=== PATIENT | male | born 1970 | race Caucasian/White ===

== ENCOUNTER 2020-07-05 13:01 | Inpatient (IN) | payer OTHER, SELFPAY ==
[2020-07-05] VITALS (14 sets, daily range): BP systolic 126–177; BP diastolic 70–86; PULSE 95–110; RESP 12–28; TEMP 36.3–36.7; O2SAT 91–100; BMI 32.4
--- NOTE | ~2020-07-05 | CT_ITS ---
EXAMINATION: CTA chest PE protocol DATE: 07/06/2020 15:50 INDICATION: COVID positive. Cough, fever and shortness of breath. Elevated d-dimer. TECHNIQUE: Computed tomography (CT) pulmonary angiogram of the chest was performed with 100 mL Omnipa que-350 intravenous contrast. Additional 3D reconstructions utilizing coronal maximum intensity proje ction (MIP) were performed. Automated exposure control and iterative reconstruction technique were em ployed. The dose-length product was 637.12 mGy-cm. COMPARISON: None FINDINGS: Good contrast opacification of the pulmonary arteries. There is moderate streak artifact from dense c ontrast in the superior vena cava and right atrium. There is also moderate scattered respiratory angel on artifact. Together this significantly decreases sensitivity in some of the subsegmental pulmonary arteries and mildly decreases sensitivity in the segmental pulmonary arteries. No definite pulmonary embolism. Peripheral, posterior and lower lung predominant patchy consolidation and groundglass opaci ties in both lungs consistent with provided pneumonia. No pleural effusion or pneumothorax. Heart siz e is normal. No pericardial effusion. Thoracic aorta is normal in caliber with no dissection. No path ologically enlarged thoracic lymphadenopathy. Minimal bilateral gynecomastia. Diffuse hepatic steatos is. Likely physiologic mild anterior wedging at T12. Mild thoracic spondylosis with multilevel modera te facet osteoarthritis. IMPRESSION: 1. No pulmonary embolism with sensitivity mildly decreased in the segmental and more significantly de creased in the subsegmental pulmonary arteries due to motion and streak artifact. 2. Peripheral, posterior lower lung predominant patchy airspace disease with appearance favoring COVI D pneumonia. Reviewed, dictated and finalized at location A. DESIGNER IMPRESSION: 1. No pulmonary embolism with sensitivity mildly decreased in the segmental and more significantly decreased in the subsegmental pulmonary arteries due to mot ion and streak artifact. 2. Peripheral, posterior lower lung predominant patchy airspace disease with ap pearance favoring COVID pneumonia.
--- NOTE | ~2020-07-05 | XR_ITS ---
EXAMINATION: XR chest 1V portable DATE: 07/05/2020 13:55 INDICATION: Fever, cough, shortness of breath. COVID-19 pneumonia. TECHNIQUE: A single frontal view of the chest was obtained. COMPARISON: None. FINDINGS: There are mild airspace opacities in the right lower lung zone and left mid and lower lung zones. No pleural effusion or pneumothorax. The heart size is normal. IMPRESSION: 1. Mild airspace opacities in right lower lung zone and left mid and lower lung zones, consistent wit h COVID-19 pneumonia. Reviewed, dictated and finalized at location A. AGE MACHINE OPERATOR IMPRESSION: 1. Mild airspace opacities in right lower lung zone and left mid and lower lung zones, consistent with COVID-19 pneumonia.
--- NOTE | 2020-07-05 13:21 | ECG_ITS ---
Measurements Intervals [place] Rate: 107 P: 17 SD: 164 QRS: 11 QRSD: 101 T: 23 QT: 323 QTc: 432 Interpretive Statements SINUS TACHYCARDIA INCOMPLETE RIGHT BUNDLE BRANCH BLOCK DELAYED PRECORDIAL R/S TRANSITION BORDERLINE T WAVE ABNORMALITY- INFERIOR LEADS BASELINE ARTIFACT- I, III, AVL, V2 ABNORMAL ECG Electronically Signed On 07-05-2020 15:36:02 [employer] by Darrian Vicente D.O.
[2020-07-05 13:37] LABS: Basophils Percent Auto 0.3 % (0.2-1.2); Hematocrit 48.3 % (42.0-52.0); Hemoglobin 16.2 g/dL (14.0-18.0); Immature Granulocyte Absolute 0.03 K/mm3 (0.00-0.031); Immature Granulocyte Percent A 0.4 % (0-0.5); Lymphocytes Absolute Auto 1.03 K/mm3 (0.9-3.2); Mean Corpuscular HGB Conc 33.5 g/dl (32-36); Mean Corpuscular Hemoglobin 30.3 pg (26-34); Mean Corpuscular Volume 90.3 fl (80-100); Mean Platelet Volume 9.9 fl (7.4-10.4); Monocytes Absolute Auto 0.3 K/mm3 (0.1-0.6); Monocytes Percent Auto 4.5 % (2.6-8.5); Neutrophils Absolute Auto 5.5 K/mm3 (1.3-6.7); Neutrophils Percent Auto 79.8 % (45.5-73.1); Platelet Count Result 220 k/mm3 (150-375); Red Blood Count 5.35 M/mm3 (4.6-6.20); Red Cell Distribution Width 11.6 % (11.5-14.5); White Blood Count 6.9 K/mm3 (4.5-10.0)
[2020-07-05 13:49] LABS: Anion Gap 6 mmol/L (8-16); Blood Urea Nitrogen 10 mg/dL (9-20); Calcium 8.3 mg/dL (8.4-10.2); Carbon Dioxide 30 mmol/L (22-30); Chloride 101 mmol/L (98-107); Estimated CRCL calculation 110 ml/min; Estimated Glomerular Filt Rate > 60; Glucose 110 mg/dL (75-110); Sodium 137 mmol/L (137-145)
[2020-07-05 14:01] LABS: Alveolar/Arterial O2 Gradient 46.8 mmHg; Base Excess ABG 1.7 mEq/l (+/-2.0); Fractional Inspired Oxygen 21 %; HCO3 ABG 25.5 mEq/l (22.0-26.0); Oxygen Content ABG 20.1 %vol (16.0-22.0); Oxygen Saturation ABG 91.3 % (95.0-100.0); Oxyhemoglobin 89.9 % THb (90.0-100.0); PCO2 ABG 37.7 mmHg (35.0-45.0); PO2 ABG 57.8 mmHg (80.0-100.0); PO2 FiO2 Ratio Arterial Blood 2.75 %; Total Hemoglobin 15.9 g/dL (12.0-18.0); pH ABG 7.448 (7.350-7.450)
[2020-07-05 14:02] LABS: Device ROOM AIR; Modified Allen's Test Pass; Site Drawn RIGHT RADIAL
--- NOTE | 2020-07-05 15:14 | ED.SOB ---
HPI - SOB/Dyspnea General Chief Complaint: Shortness of Breath/Dyspnea Stated Complaint: COVID+, fever x 10 days, SOB Time Seen by Provider: 07/05/20 13:27 Source: patient Limitations: no limitations History of Present Illness HPI Narrative: 49 years old white male referred to the emergency room by urgent care because of shortness of breath. Patient tested positive for COVID-19 10 days ago. Was doing okay. In the last few days been having trouble breathing on exertion. Patient denies any headache, chest pain or abdominal pain. Related Data Home Medications Medication Instructions Recorded Confirmed No Home Medications 07/05/20 07/05/20 Allergies Allergy/AdvReac Type Severity Reaction Status Date / Time No Known Allergies Allergy Verified 07/05/20 13:17 Review of Systems Review of Systems: Narrative: CONSTITUTIONAL: Denies fever, chills, or sweats. EYES: Denies visual changes, redness, or discharge. ENT: Denies rhinorrhea, congestion, sore throat, or otalgia. CARDIOVASCULAR: Denies chest pain, palpitations, or edema. RESPIRATORY: Denies cough or dyspnea. GASTROINTESTINAL: Denies abdominal pain, nausea, vomiting, or diarrhea. GENITOURINARY: Denies dysuria or hematuria. SKIN: Denies rash or itching. MUSCULOSKELETAL: Denies back pain, joint pain, or myalgia. NEUROLOGIC: Denies headache, numbness, or weakness. PSYCHIATRIC: Denies anxiety or depression. [facility] Family History Family History Father Family history of coronary artery disease Social History Social History Smoking status: Never smoker Alcohol intake: current Gender identity (if verbalized by the patient): Male Exam Narrative: Exam Narrative: General appearance: Well-developed, well-nourished Skin: Normal color Head: Normocephalic, nontraumatic Eyes: Clear conjunctiva ENT: Oropharynx normal, ears normal, nose normal Neck: Supple, nontender Chest and respiratory: Airway patent, no respiratory distress, no accessory muscle use Heart: Regular rate/rhythm Abdomen: Soft, nontender, no organomegaly, quiet bowel sounds Vascular: Normal peripheral pulses, normal capillary refill. 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 Presents with shortness of breath. Labs, blood gas on room air, chest x-ray ordered. Further plan to follow Differential Diagnosis Differential diagnosis: Likely congestive heart failure, community acquired pneumonia, pulmonary embolism and other (Covid pneumonia) Lab Data Result diagrams: 07/05/20 13:23 07/05/20 13:23 Labs: Lab Results 07/05/20 07/05/20 07/05/20 Range/Units 13:23 13:23 13:23 WBC 6.9 (4.5-10.0) K/mm3 RBC 5.35 (4.6-6.20) M/mm3 Hgb 16.2 (14.0-18.0) g/dL Hct 48.3 (42.0-52.0) % MCV 90.3 (80-100) fl MCH 30.3 (26-34) pg MCHC 33.5 (32-36) g/dl RDW 11.6 (11.5-14.5) % Plt Count 220 (150-375)
--- NOTE | 2020-07-05 17:21 | ADMGEN ---
This patient, James Black, was admitted to IMU Room 213-01. Patient/family oriented to hospital policies and general routines including ID bracelet, bed and alarms, visiting hours, pain management, procedures, bathroom and other care routines, personal items, smoking policy, room service/diet, and visiting hours. Information on how to activate the Rapid Response Team has been discussed. Patient/Family are encouraged to report perceived risks to care and to ask questions if they do not understand what they are told or what they should do.
--- NOTE | 2020-07-05 18:33 | PM.IMHP ---
H&P: HPI History of Present Illness Date/Time: 07/05/20 18:33 Chief Complaint: COVID pneumonia Narrative: James Black is a 49 year old male who came to the emergency room because he was short of breath. The patient is still running high fevers. He stated that he has been checking his pulse ox at home and that he had been running 89-90%. The patient still has a cough and was concerned about his breathing so therefore he came to the emergency room. His a tested positive for COVID as well and so did his 2 children that are at home. The patient stated he took Tylenol and cough medicine at home. The patient tells me that his symptoms started 10 days ago. He was doing okay until last night and then he got very short of breath. The patient stated he cannot walk up stairs but is okay to go to the bathroom back. The patient stated that he has not been able to work for the last 10 days. I checked his temperature in the room it was 101.1. In the ER notes the patient has smoked 3 admitted to medical-surgical floor however the orders were put in for IMU. I believe that the patient could be moved to a regular medical surgical floor with telemetry. The patient is being admitted to inpatient for COVID pneumonia with hypoxia 92% and went up to 94 at 1 time. Oxygen was ordered for the patient but he was on room air when I saw him and he is talking in full sentences. The patient is flushed. He said he feels like he has a fog in his brain. He just feels very ill. No nausea or vomiting. He has a headache and body aches. The patient was given Tylenol in the emergency room. Patient is being admitted to inpatient status on the date of service of 07/05/2020. Review of Systems Review of Systems: All systems reviewed & are unremarkable except as noted in HPI and below Constitutional: Constitutional: Reports as per HPI and Reports no additional constitutional complaints Eyes: Eyes: Reports as per HPI and Reports no additional eye complaints ENT: Reports system reviewed and no additional complaints, except as documented and Reports Normal hearing present Cardiovascular: Cardiovascular: Reports no additional cardiovascular complaints Respiratory: Respiratory: Reports no additional respiratory complaints and Reports no additional respiratory complaints Gastrointestinal: Gastrointestinal: Reports as per HPI and Reports no additional gastrointestinal complaints Musculoskeletal: Musculoskeletal: Reports no additional musculoskeletal complaints Integumentary/Breasts: Skin/Breast: Reports system reviewed and no additional complaints, except as docu and Reports as per HPI Neurologic: Reports system reviewed and no additional complaints, except as documented, Reports as per HPI and Reports Normal hearing present Psychiatric: Psychiatric: Reports no additional psychiatric complaints and Reports as per HPI Endocrine: Endocrine: Reports no additional endocrine complaints Hematologic/Lymphatic: Hematologic/Lymphatic: Reports no additional hematologic/lymphatic complaints Allergic/Immunologic: Allergic/Immunologic: Reports no additional allergic/immunologic complaints PMFSH Surgical History Surgical History (Updated 07/05/20 @ 18:39 by Cheyanne Gupta NP) History of ankle surgery ORIF of left ankle Family History Family History Father Family history of coronary artery disease Social History Social History (Updated 07/05/20 @ 18:41 by Cheyanne Gupta NP) Social History: The patient works for a [employer] firm. He has 3 children. 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 He desires to be a full code. His lifelong nonsmoker. He does not use any alcohol or drugs. Smoking status: Never smoker Alcohol intake: current Drinks per week: 1 Substance use: never Gender identity (if verbalized by the patient): Male Spiritual care concerns: No
[2020-07-05 19:10] LABS: Alanine Aminotransferase 63 U/L (4-50)
[2020-07-05] MEDS: REMDESIVIR 200 MG/NS 250 ML 200 MG/250 ML BAG 250 MG IVPB (20:41)
[2020-07-05] MEDS: ACETAMINOPHEN 325 MG TABLET 650 MG PO (20:46)
[2020-07-05] MEDS: guaiFENesin/DEXTROMETHORPHAN 10 ML UDC PO (20:57)
[2020-07-06] VITALS (13 sets, daily range): BP systolic 115–133; BP diastolic 67–74; PULSE 75–97; RESP 12–20; TEMP 36.4–37.5; O2SAT 92–99
[2020-07-06] MEDS: ACETAMINOPHEN 325 MG TABLET 650 MG PO ×3 (00:41→20:20)
[2020-07-06 05:42] LABS: Basophils Percent Auto 0.4 % (0.2-1.2); Hematocrit 41.4 % (42.0-52.0); Hemoglobin 13.8 g/dL (14.0-18.0); Immature Granulocyte Absolute 0.05 K/mm3 (0.00-0.031); Immature Granulocyte Percent A 0.7 % (0-0.5); Lymphocytes Absolute Auto 1.27 K/mm3 (0.9-3.2); Lymphocytes Percent Auto 16.9 % (18.3-44.2); Mean Corpuscular HGB Conc 33.3 g/dl (32-36); Mean Corpuscular Hemoglobin 30.4 pg (26-34); Mean Corpuscular Volume 91.2 fl (80-100); Mean Platelet Volume 9.8 fl (7.4-10.4); Monocytes Absolute Auto 0.3 K/mm3 (0.1-0.6); Monocytes Percent Auto 4.5 % (2.6-8.5); Neutrophils Absolute Auto 5.8 K/mm3 (1.3-6.7); Neutrophils Percent Auto 77.5 % (45.5-73.1); Platelet Count Result 239 k/mm3 (150-375); Red Blood Count 4.54 M/mm3 (4.6-6.20); Red Cell Distribution Width 11.6 % (11.5-14.5); White Blood Count 7.5 K/mm3 (4.5-10.0)
[2020-07-06 06:04] LABS: Alanine Aminotransferase 54 U/L (4-50); Albumin Level 3.8 g/dL (3.5-5.1); Alkaline Phosphatase 53 U/L (38-126); Anion Gap 5 mmol/L (8-16); Aspartate Amino Transferase 73 U/L (17-59); Bilirubin,Total 0.7 mg/dL (0.2-1.3); Blood Urea Nitrogen 12 mg/dL (9-20); Calcium 8.4 mg/dL (8.4-10.2); Carbon Dioxide 30 mmol/L (22-30); Chloride 100 mmol/L (98-107); Estimated CRCL calculation 121 ml/min; Estimated Glomerular Filt Rate > 60; Glucose 103 mg/dL (75-110); Lactate Dehydrogenase 1252 U/L (313-618); Potassium 4.2 mmol/L (3.4-5.0); Sodium 135 mmol/L (137-145)
[2020-07-06 06:18] LABS: CRP 16.1 mg/dL (<1.0)
[2020-07-06 09:13] LABS: Ferritin > 2000.00 ng/mL (17.9-464)
[2020-07-06] MEDS: DEXAMETHASONE SOD PHOS INJ 4 MG/ML VIAL 6 MG IV PUSH (09:25)
[2020-07-06] MEDS: ENOXAPARIN 40 MG/0.4 ML SYRINGE SUB-Q (09:31)
--- NOTE | 2020-07-06 13:43 | PM.IMPN ---
Progress Note: A&P Assessment and Plan (1) 2019 novel coronavirus–infected pneumonia (NCIP)#8211;infected pneumonia (NCIP): Code(s): U07.1 - COVID-19; J12.82 - Pneumonia due to coronavirus disease 2018 Status: Acute Assessment and Plan: Chest x-ray shows multifocal pneumonia Patient has significantly elevated ferritin and LDH Started on dexamethasone day 2 Started on remdisever day 2 ID was consulted may benefit from convalescent plasma (2) Acute hypoxemic respiratory failure: Code(s): J96.01 - Acute respiratory failure with hypoxia Status: Acute Assessment and Plan: Secondary to COVID-19 pneumonia on oxygen 1 L (3) Abnormal EKG: Code(s): R94.31 - Abnormal electrocardiogram [ECG] [EKG] Status: Acute Assessment and Plan: Patient denies chest pain Will get serial troponin May need echo before discharge if troponin elevated or patient developed episodes of chest pain otherwise will get echo as outpatient once patient COVID-19 infection resolved Patient had partial right bundle branch block ST segment changes nonspecific Subjective Date/time seen: 07/06/20 13:43 Interval history: Patient seen and examined Patient feels weak complain of shortness of breath on oxygen Patient currently on dexamethasone and remdisever Patient denies fever headache chest pain I am seeing the patient for shortness of breath Exam Narrative: Exam Narrative: Alert Chest bilateral crackles Abdomen nontender nondistended CVS S1 + S2 Lower extremity edema Objective Data Vital Signs Vital Signs: Vital Signs - 24 hr 07/05/20 14:46 07/05/20 15:41 07/05/20 16:00 Temperature 97.9 F Pulse Rate 102 H 105 H 96 Respiratory Rate 22 H 20 12 Blood Pressure 130/84 128/82 140/73 Pulse Oximetry 92 91 94 07/05/20 16:05 07/05/20 16:30 07/05/20 18:00 Temperature Pulse Rate 105 H 104 H 108 H Respiratory Rate 24 H Blood Pressure 126/76 Pulse Oximetry 92 94 07/05/20 19:31 07/05/20 20:00 07/05/20 21:53 Temperature 97.3 F L Pulse Rate 105 H 110 H Respiratory Rate 12 Blood Pressure 177/70 H Pulse Oximetry 100 100 91 07/05/20 22:00 07/06/20 00:00 07/06/20 02:00 Temperature 97.6 F Pulse Rate 95 94 85 Respiratory Rate 18 Blood Pressure 125/69 Pulse Oximetry 92 07/06/20 04:00 07/06/20 06:00 07/06/20 07:25 Temperature 97.6 F Pulse Rate 97 85 96 Respiratory Rate 18 Blood Pressure 133/67 Pulse Oximetry 94 07/06/20 08:00 07/06/20 09:11 07/06/20 10:00 Temperature Pulse Rate 93 86 Respiratory Rate 18 Blood Pressure Pulse Oximetry 92 92 07/06/20 12:52 Temperature 99.2 F Pulse Rate 86 Respiratory Rate 12 Blood Pressure 115/73 Pulse Oximetry 94 Intake/Output Intake/Output: Intake & Output 07/03/20 07/04/20 07/05/20 07/06/20 23:59 23:59 23:59 23:59 Intake Total 490 1020 Output Total 600 Balance 490 420 Meds/Results Medications: Active Medications Generic Name Dose Route Start Last Admin Trade Name Freq PRN Reason Stop Dose Admin Acetaminophen 650 mg 07/05/20 18:23 07/06/20 09:38 Acetaminophen 325 Mg Tablet PO 650 mg Q4H PRN Administration Headache Ascorbic Acid 1,000 mg 07/06/20 13:45 Ascorbic Acid 500 Mg Tablet PO DAILY SOFIYA Dexamethasone Sodium Phosphate 6 mg 07/06/20 09:00 07/06/20 09:25 Dexamethasone Sod Phos Inj 4 Mg/Ml Vial IV PUSH 07/15/20 09:01 6 mg DAILY SOFIYA Administration Enoxaparin Sodium 40 mg 07/06/20 09:00 07/06/20 09:31 Enoxaparin 40 Mg/0.4 Ml Syringe SUB-Q 40 mg DAILY SOFIYA Administration Guaifenesin/Dextromethorphan 10 ml 07/05/20 18:45 07/05/20 20:57 Guaifenesin/Dextromethorphan 10 Ml Udc PO 10 ml Q4H PRN Administration Cough Acetaminophen 1,000 mg in 100 mls @ 400 mls/hr 07/05/20 14:27 Ofirmev 1,000 Mg Ivpb IVPB 07/06/20 14:28 Q6H PRN Mild Pain (1-3) or Fever Remdesivir 100 mg in 250 mls @ 250
[2020-07-06 14:45] LABS: Troponin I < 0.012 ng/mL (0.000-0.034)
[2020-07-06] MEDS: ASCORBIC ACID 500 MG TABLET 1000 MG PO (15:34)
[2020-07-06] MEDS: ZINC SULFATE 220 MG CAPSULE PO (15:34)
[2020-07-06] MEDS: CHOLECALCIFEROL 1,000 UNITS TABLET 1000 UNITS PO (15:35)
[2020-07-06 15:52] LABS: Lactate Dehydrogenase 1219 U/L (313-618)
--- NOTE | 2020-07-06 17:00 | PC.NURSE ---
This patient, James Black, was received from IMU on 07/06/20 at 1700. Patient/family oriented to unit policies and routines.Report received from Aleida PULIDO
[2020-07-06 17:27] LABS: Troponin I < 0.012 ng/mL (0.000-0.034)
[2020-07-06 17:37] LABS: Ferritin > 2000.00 ng/mL (17.9-464)
[2020-07-06] MEDS: REMDESIVIR 100 MG/NS 250 ML 100 MG/250 ML BAG 250 MG IVPB (20:21)
[2020-07-07] VITALS (8 sets, daily range): BP systolic 118–131; BP diastolic 72–79; PULSE 67–92; RESP 18–20; TEMP 36.3–37.1; O2SAT 91–99
[2020-07-07 07:56] LABS: Alanine Aminotransferase 51 U/L (4-50); CRP 13.6 mg/dL (<1.0)
[2020-07-07] MEDS: CHOLECALCIFEROL 1,000 UNITS TABLET 1000 UNITS PO (09:11)
[2020-07-07] MEDS: ZINC SULFATE 220 MG CAPSULE PO (09:11)
[2020-07-07] MEDS: ASCORBIC ACID 500 MG TABLET 1000 MG PO (09:11)
[2020-07-07] MEDS: DEXAMETHASONE SOD PHOS INJ 4 MG/ML VIAL 6 MG IV PUSH (09:11)
[2020-07-07] MEDS: ACETAMINOPHEN 325 MG TABLET 650 MG PO ×2 (09:12→22:05)
[2020-07-07] MEDS: ENOXAPARIN 40 MG/0.4 ML SYRINGE SUB-Q ×2 (09:12→20:07)
--- NOTE | 2020-07-07 13:35 | PM.IMPN ---
Progress Note: A&P Assessment and Plan (1) 2019 novel coronavirus–infected pneumonia (NCIP)#8211;infected pneumonia (NCIP): Code(s): U07.1 - COVID-19; J12.82 - Pneumonia due to coronavirus disease 2018 Status: Acute Assessment and Plan: Chest x-ray shows multifocal pneumonia Patient has significantly elevated ferritin and LDH Continue dexamethasone (day 2) and remdesivir (day 3). ID was consulted for recommendations on convalescent plasma. Continue supplemental O2 and wean as tolerated to keep O2 saturations > 90%. Continue supportive care with Tylenol for fevers, albuterol MDI, Robitussin, incentive spirometer, supplementation of Zinc, vitamins C and D. Encouraged prone positioning. Lovenox BID for DVT ppx. (2) Acute hypoxemic respiratory failure: Code(s): J96.01 - Acute respiratory failure with hypoxia Status: Acute Assessment and Plan: Secondary to COVID-19 pneumonia on oxygen 1 L (3) Abnormal EKG: Code(s): R94.31 - Abnormal electrocardiogram [ECG] [EKG] Status: Acute Assessment and Plan: Patient denies chest pain. Trop negative. Patient had partial right bundle branch block ST segment changes nonspecific Consider outpatient echo once recovered from COVID. Subjective Date/time seen: 07/07/20 1145 Interval history: Mr. Black is a very pleasant 49yo M admitted for acute respiratory failure secondary to COVID pneumonia. He reports feeling improved somewhat. His shortness of breath is improved. He is able to ambulate independently but is surprised by how weak he is. He took O2 off to walk to bathroom and desaturated to 88% on room air, placed back on O2. Denies chest pain. Had diarrhea earlier in course but this is resolved. Taste and smell mostly gone. Review of Systems Review of Systems: All systems reviewed & are unremarkable except as noted in HPI and below Exam Narrative: Exam Narrative: General: Male seen ambulating in room then sitting comfortably in bed in no acute distress. HEENT: Normocephalic, EOMI, oral mucosa moist. Cardiovascular: Rate and rhythm are regular. Respiratory: Decreased breath sounds IGNACIA. Respirations even and non-labored. Tolerating 1 L nasal cannula. Abdomen: Soft, non-tender, non-distended, bowel sounds present. Extremities: Peripheral pulses intact. No edema. Neuro: No focal neurological deficits. Speech is clear. Objective Data Vital Signs Vital Signs: Last Vital Signs Temp 98.0 F 07/07/20 16:00 Pulse 83 07/07/20 16:00 Resp 20 07/07/20 16:00 BP 118/72 07/07/20 16:00 Pulse Ox 93 07/07/20 18:34 Intake/Output Intake/Output: Intake & Output 07/04/20 07/05/20 07/06/20 07/07/20 23:59 23:59 23:59 23:59 Intake Total 490 2010 690 Output Total 600 Balance 490 1410 690 Meds/Results Medications: Active Medications Generic Name Dose Route Start Last Admin Trade Name Freq PRN Reason Stop Dose Admin Acetaminophen 650 mg 07/05/20 18:23 07/07/20 09:12 Acetaminophen 325 Mg Tablet PO 650 mg Q4H PRN Administration Headache Ascorbic Acid 1,000 mg 07/06/20 13:45 07/07/20 09:11 Ascorbic Acid 500 Mg Tablet PO 1,000 mg DAILY SOFIYA Administration Dexamethasone Sodium Phosphate 6 mg 07/06/20 09:00 07/07/20 09:11 Dexamethasone Sod Phos Inj 4 Mg/Ml Vial IV PUSH 07/15/20 09:01 6 mg DAILY SOFIYA Administration Enoxaparin Sodium 40 mg 07/07/20 09:00 07/07/20 09:12 Enoxaparin 40 Mg/0.4 Ml Syringe SUB-Q 40 mg Q12HR SOFIYA Administration Guaifenesin/Dextromethorphan 10 ml 07/05/20 18:45 07/05/20 20:57 Guaifenesin/Dextromethorphan 10 Ml Udc PO 10 ml Q4H PRN Administration Cough Remdesivir 100 mg in 250 mls @ 250 mls/hr 07/06/20 22:00 07/06/20 21:25 IVPB 07/09/20 22:01 Infused Q24H SOFIYA Infusion Levalbutero
[2020-07-07] MEDS: REMDESIVIR 100 MG/NS 250 ML 100 MG/250 ML BAG 250 MG IVPB (22:05)
[2020-07-08] VITALS: BP 123/82; PULSE 78; RESP 20; TEMP 36.3; O2SAT 94
[2020-07-08 04:00] VITALS: BP 112/67; PULSE 71; RESP 20; TEMP 36.2; O2SAT 91
[2020-07-08 06:19] LABS: Basophils Percent Auto 0.2 % (0.2-1.2); Hematocrit 44.4 % (42.0-52.0); Hemoglobin 14.6 g/dL (14.0-18.0); Immature Granulocyte Absolute 0.07 K/mm3 (0.00-0.031); Immature Granulocyte Percent A 0.8 % (0-0.5); Lymphocytes Absolute Auto 1.35 K/mm3 (0.9-3.2); Lymphocytes Percent Auto 15.8 % (18.3-44.2); Mean Corpuscular HGB Conc 32.9 g/dl (32-36); Mean Corpuscular Hemoglobin 30.7 pg (26-34); Mean Corpuscular Volume 93.3 fl (80-100); Mean Platelet Volume 9.7 fl (7.4-10.4); Monocytes Absolute Auto 0.7 K/mm3 (0.1-0.6); Monocytes Percent Auto 7.7 % (2.6-8.5); Neutrophils Absolute Auto 6.5 K/mm3 (1.3-6.7); Neutrophils Percent Auto 75.5 % (45.5-73.1); Platelet Count Result 298 k/mm3 (150-375); Red Blood Count 4.76 M/mm3 (4.6-6.20); Red Cell Distribution Width 11.5 % (11.5-14.5); White Blood Count 8.6 K/mm3 (4.5-10.0)
[2020-07-08 06:35] LABS: Alanine Aminotransferase 47 U/L (4-50); Albumin Level 3.4 g/dL (3.5-5.1); Alkaline Phosphatase 55 U/L (38-126); Anion Gap 3 mmol/L (8-16); Aspartate Amino Transferase 47 U/L (17-59); Bilirubin,Total 0.5 mg/dL (0.2-1.3); Blood Urea Nitrogen 17 mg/dL (9-20); CRP 5.1 mg/dL (<1.0); Calcium 8.5 mg/dL (8.4-10.2); Carbon Dioxide 30 mmol/L (22-30); Chloride 104 mmol/L (98-107); Creatine Kinase 89 U/L (55-170); Estimated CRCL calculation 137 ml/min; Estimated Glomerular Filt Rate > 60; Glucose 117 mg/dL (75-110); Lactate Dehydrogenase 826 U/L (313-618); Potassium 4.3 mmol/L (3.4-5.0); Sodium 137 mmol/L (137-145)
[2020-07-08 08:00] VITALS: BP 131/74; PULSE 72; RESP 18; TEMP 36.8; O2SAT 93; O2SAT 96
[2020-07-08 08:38] LABS: Ferritin > 2000.00 ng/mL (17.9-464)
[2020-07-08 09:10] VITALS: O2SAT 93
[2020-07-08] MEDS: DEXAMETHASONE SOD PHOS INJ 4 MG/ML VIAL 6 MG IV PUSH (09:22)
[2020-07-08] MEDS: ENOXAPARIN 40 MG/0.4 ML SYRINGE SUB-Q (09:22)
[2020-07-08] MEDS: ZINC SULFATE 220 MG CAPSULE PO (09:23)
[2020-07-08] MEDS: ASCORBIC ACID 500 MG TABLET 1000 MG PO (09:23)
[2020-07-08] MEDS: CHOLECALCIFEROL 1,000 UNITS TABLET 1000 UNITS PO (09:23)
[2020-07-08 12:00] VITALS: BP 120/74; PULSE 74; RESP 16; TEMP 36.5; O2SAT 92
--- NOTE | 2020-07-08 12:35 | WPDINFPN2 ---
Progress Note: A&P Assessment and Plan (1) 2019 novel coronavirus–infected pneumonia (NCIP)#8211;infected pneumonia ([facility]): Code(s): U07.1 - COVID-19; J12.82 - Pneumonia due to coronavirus disease 2019 Status: Acute Assessment and Plan: Covid 19 infection with mild hypoxemia that is resolved. Symptom onset evening of 06/25, test + 06/26. REC Dexamethasone through 07/15. No benefit from remdesivir, plasma, monoclonal antibody, nor tocilizumab. Ok home. Subjective Date/time seen: 07/08/20 12:35 Objective Data Vital Signs Vital Signs: Vital Signs - 24 hr 07/07/20 16:00 07/07/20 18:34 07/07/20 20:00 Temperature 36.7 C 36.4 C Pulse Rate 83 73 Respiratory Rate 20 20 Blood Pressure 118/72 127/73 Pulse Oximetry 93 93 93 07/08/20 00:00 07/08/20 04:00 07/08/20 08:00 Temperature 36.3 C L 36.2 C L 36.8 C Pulse Rate 78 71 72 Respiratory Rate 20 20 18 Blood Pressure 123/82 112/67 131/74 Pulse Oximetry 94 91 96 07/08/20 09:10 Temperature Pulse Rate Respiratory Rate Blood Pressure Pulse Oximetry 93 Intake/Output Intake/Output: Intake & Output 07/05/20 07/06/20 07/07/20 07/08/20 23:59 23:59 23:59 23:59 Intake Total 490 2009 3110 640 Output Total 600 Balance 490 1410 3110 640 Meds/Results Medications: Active Medications Generic Name Dose Route Start Last Admin Trade Name Freq PRN Reason Stop Dose Admin Acetaminophen 650 mg 07/05/20 18:23 07/07/20 22:05 Acetaminophen 325 Mg Tablet PO 650 mg Q4H PRN Administration Headache Ascorbic Acid 1,000 mg 07/06/20 13:45 07/08/20 09:23 Ascorbic Acid 500 Mg Tablet PO 1,000 mg DAILY SOFIYA Administration Dexamethasone 6 mg 07/09/20 08:00 Dexamethasone 2 Mg Tablet PO 07/15/20 08:01 DAILY@0800 SOFIYA Enoxaparin Sodium 40 mg 07/07/20 09:00 07/08/20 09:22 Enoxaparin 40 Mg/0.4 Ml Syringe SUB-Q 40 mg Q12HR SOFIYA Administration Guaifenesin/Dextromethorphan 10 ml 07/05/20 18:45 07/05/20 20:57 Guaifenesin/Dextromethorphan 10 Ml Udc PO 10 ml Q4H PRN Administration Cough Levalbuterol HCl 2 puff 07/05/20 18:43 Levalbuterol Hfa (*Sp) 15 Gm Inhaler INHALATION Q6HRT PRN Shortness Of Breath Vitamin D 1,000 units 07/06/20 13:40 07/08/20 09:23 Cholecalciferol 1,000 Units Tablet PO 1,000 units DAILY SOFIYA Administration Zinc Sulfate 220 mg 07/06/20 13:45 07/08/20 09:23 Zinc Sulfate 220 Mg Capsule PO 220 mg QAM SOFIYA Administration Radiology Results: ITS Impressions Chest X-Ray 07/05/20 13:57 IMPRESSION: 1. Mild airspace opacities in right lower lung zone and left mid and lower lung zones, consistent with COVID-19 pneumonia. Chest CTA 07/06/20 16:15 IMPRESSION: 1. No pulmonary embolism with sensitivity mildly decreased in the segmental and more significantly decreased in the subsegmental pulmonary arteries due to motion and streak artifact. 2. Peripheral, posterior lower lung predominant patchy airspace disease with appearance favoring COVID pneumonia. Labs Labs: Laboratory Results - last 24 hr 07/08/20 07/08/20 07/08/20 06:04 06:04 06:04 WBC 8.6 RBC 4.76 Hgb 14.6 Hct 44.4 MCV 93.3 MCH 30.7 MCHC 32.9 RDW 11.5 Plt Count 298 MPV 9.7 Immature Gran % (Auto) 0.8 H Neut % (Auto) 75.5 H Lymph % (Auto) 15.8 L [place] % (Auto) 7.7 Eos % (Auto) 0.0 Baso % (Auto) 0.2 Lymph # (Auto) 1.35 [place] # (Auto) 0.7 H Eos # (Auto) 0.0 Baso # (Auto) 0.0 Abs Immat Gran (auto) 0.07 H Absolute Neuts (auto) 6.5 Absolute Nucleated RBC 0.0 Nucleated RBC % 0.0 Sodium 137 Potassium 4.3 Chloride 104 Carbon Dioxide 30 Anion Gap 3 L BUN 17 Creatinine 0.70 Estim Creat Clear Calc 137 Estimated GFR > 60 Glucose 117 H Calcium 8.5 Magnesium 2.0 Ferritin > 2000.00 H Total Bilirubin 0.5 AST 47 ALT 47 Alkaline Phosphatase 55 Lactate
--- NOTE | 2020-07-08 13:33 | CONS_ITS ---
DATE OF CONSULTATION: 07/08/2020 REASON FOR CONSULTATION: Plasma for coronavirus infection. HISTORY OF PRESENT ILLNESS: A 49-year-old male who has had no previous coronavirus testing. No chronic lung disease. No immunosuppressants. No antimicrobials in the last 4 weeks for any purpose. 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 On June 25, his daughter with whom he lives, developed vomiting. Later that evening, the patient had insomnia followed by fever and cough. Both he and his daughter then had testing done at [facility] on June 26, and he was informed about 6 days later that the test was positive. His fever persisted throughout and he also developed loss of smell and taste (latter has partially recovered), no sputum production, nausea, vomiting, or diarrhea. He did have some air hunger. He called his primary care physician who gave the patient option of an antibacterial and prednisone. However, the patient received no strong recommendation and after consideration, he declined the offer. He then presented to the emergency room on July 05 and was admitted. He has been given dexamethasone and remdesivir and consultation requested. He has not been given any antibacterials. His fever has finally abated. He is now on room air without dyspnea. ALLERGIES: NONE KNOWN. PRESENT MEDICATIONS: List reviewed. No other immunosuppressants. HABITS: No tobacco or alcohol. PAST MEDICAL HISTORY: No chronic medical illnesses. Previous ankle surgery. FAMILY HISTORY: Not pertinent to his present illness. REVIEW OF SYSTEMS: Constitutional, GI, respiratory, cardiovascular, otherwise negative. 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 Lives locally, . PHYSICAL EXAMINATION: GENERAL: This is a middle-aged male who appears his actual age, in no distress. HEENT: 91% to 96% on room air, 131/74, 72, 18. He had been afebrile since arrival here on the afternoon of the . SKIN: Warm and dry. EENT: The conjunctivae are clear. Pupils equal and round. NECK: No masses or adenopathy. LUNGS: Clear to auscultation and percussion. CHEST: Equal expansion. Normal AP diameter. CARDIAC: Regular rate and rhythm. No murmur, gallop, or rub. ABDOMEN: Nontender, soft. No organomegaly. No masses. EXTREMITIES: Without clubbing, cyanosis, or edema. No splinter hemorrhages. LABORATORY DATA: No microbiology in process. His CBC is normal. Chemistry panel normal except for a glucose of 117. His ferritin is high at 2000. ALT 51 yesterday, 47 today. His LDH declined to 826. CRP is 5.1, down from 13.6. RADIOLOGY: Chest x-ray on arrival, mild airspace opacities, right lower lung zone, left mid and lower lung zone. Repeat chest CT showed similar findings. ASSESSMENT: Coronavirus 19 infection with mild viral pneumonia, minimal AA gradient at this time and is otherwise symptomatically much improved. He presented to the hospital 10 days after onset of symptoms and thus there is no benefit per medical studies for monoclonal antibodies, convalescent plasma, remdesivir, or tocilizumab. Given his presentation, steroids I think are a benefit. RECOMMENDATIONS: 1. Continue dexamethasone through July 15 to complete a 10-day course. No other medical therapies are indicated. 2. Okay for discharge. 3. Discussed with him the considerations for the above recommendations as well as infection control measures to be followed at home as well as his potential need for vaccination in the future, but not before 90 days after onset of symptoms. Thank you very much for asking me to see him.
--- NOTE | 2020-07-08 14:20 | PM.DS ---
DS: Admitting Diagnosis Admitting Diagnosis Admitting Diagnosis: Acute respiratory failure with hypoxia; COVID DS: Discharge Diagnosis Discharge Diagnosis (1) 2019 novel coronavirus–infected pneumonia (NCIP)#8211;infected pneumonia (NCIP): Code(s): U07.1 - COVID-19; J12.82 - Pneumonia due to coronavirus disease 2019 Status: Acute Assessment and Plan: Date of Admission 07/05/20 Date of Discharge/DOS 07/08/20 Mr. Black is a very pleasant 49yo M previously healthy who presented to the ED for evaluation of worsening shortness of breath and fatigue after receiving a COVID positive test prior to arrival. Chest CTA demonstrated multifocal pneumonia. He was treated with 3 days of dexamethasone and 4 days of remdesivir. He was hypoxic requiring up to 2L/min nasal cannula which was eventually weaned down prior to discharge. He tolerated some prone positioning well. Slight EKG changes noted below - no chest pain; may benefit from outpatient echocardiogram once he recovers from COVID. He was tolerating room air with adequate oxygen saturations on day of discharge and feeling improved with the therapy outlined above and below. He was hemodynamically stable for discharge on 07/08/20 with instructions to follow up with PCP. His is a nurse and will help him monitor symptoms and pulse oximetry at home. He is educated on return to ED instructions. Imaging shows multifocal pneumonia. Patient has significantly elevated ferritin and LDH Treated with dexamethasone (day 3) and remdesivir (day 4). ID was consulted and recommends continuing dexamethasone at discharge. Treated with supportive care with Tylenol for fevers, albuterol MDI, Robitussin, incentive spirometer, supplementation of Zinc, vitamins C and D. Encouraged prone positioning. Lovenox BID for DVT ppx while inpatient. (2) Acute hypoxemic respiratory failure: Code(s): J96.01 - Acute respiratory failure with hypoxia Status: Resolved Assessment and Plan: Secondary to COVID-19 pneumonia, resolved now. (3) Abnormal EKG: Code(s): R94.31 - Abnormal electrocardiogram [ECG] [EKG] Status: Acute Assessment and Plan: Patient denies chest pain. Trop negative. Patient had partial right bundle branch block with nonspecific ST segment changes. Consider outpatient echo once recovered from COVID. DS: Summary Hospital Course Hospital Course: See above. Time Spent with Patient Time attestation: Total time spent providing and/or coordinating discharge services: 35 minutes Exam Narrative: Exam Narrative: General: Male seen ambulating in room then sitting comfortably in bed in no acute distress. HEENT: Normocephalic, EOMI, oral mucosa moist. Cardiovascular: Rate and rhythm are regular. Respiratory: Decreased breath sounds IGNACIA. Respirations even and non-labored. Tolerating room air. Abdomen: Soft, non-tender, non-distended, bowel sounds present. Extremities: Peripheral pulses intact. No edema. Neuro: No focal neurological deficits. Speech is clear. DS: Data Data Completed and Pending Labs on day of discharge: Last Vital Signs Temp 97.7 F 07/08/20 12:00 Pulse 74 07/08/20 12:00 Resp 16 07/08/20 12:00 BP 120/74 07/08/20 12:00 Pulse Ox 92 07/08/20 12:00 ITS Impressions Chest X-Ray 07/05/20 13:57 IMPRESSION: 1. Mild airspace opacities in right lower lung zone and left mid and lower lung zones, consistent with COVID-19 pneumonia. Chest CTA 07/06/20 16:15 IMPRESSION: 1. No pulmonary embolism with sensitivity mildly decreased in the segmental and more significantly decreased in the subsegmental pulmonary arteries due to motion and streak artifact. 2. Peripheral, posterior lower lung predominant patchy airspace disease with appearance favor
== END 2020-07-08 15:35 | disposition home or self-care (01) | DRG 177 ==
LOC: ANHED 15:19 → ANHIMU 16:23 → ANH3MEDSUR 07-07 07:54 → ANHIMU 07-11 13:30
PROVIDERS: Nurse Practitioner; Admitting Provider Internal Medicine; Emergency Provider Emergency Medicine; Visit Provider Physician Assistant
DX: U07.1 COVID-19 (principal); J12.82 Pneumonia due to coronavirus disease 2019; J96.01 Acute respiratory failure with hypoxia; R94.31 Abnormal electrocardiogram [ECG] [EKG]
CPT/HCPCS: 36415; 36600; 71045; 71275; 80048; 80053; 82550; 82728; 82805; 83605; 83615; 83735; 84443; 84460; 84484; 85025; 85380; 86140; 93005; 96365; 96372; 96375; 99285; A9270; G0378; J1100; J1650; Q9967

== ENCOUNTER 2020-08-22 09:47 | Outpatient (CLI) | payer OTHER, SELFPAY ==
--- NOTE | ~2020-08-22 | XR_ITS ---
EXAMINATION: XR chest 2V DATE: 08/22/2020 11:35 INDICATION: Follow-up computed pneumonia TECHNIQUE: PA and lateral views of the chest were obtained. COMPARISON: Chest radiograph dated 07/05/[address] dated 07/06/2020 FINDINGS: Significant decrease in now mild residual streaky opacities at the bilateral lung bases. No pleural e ffusion or pneumothorax. The cardiomediastinal silhouette is normal. Mild thoracic spondylosis. IMPRESSION: 1. Significant decrease in now mild residual streaky opacities at the bilateral lung bases consistent with improving pneumonia and/or residual atelectasis/scarring. Reviewed, dictated and finalized at location B. ATIONAL ADVISER IMPRESSION: 1. Significant decrease in now mild residual streaky opacities at the bilateral lung bases consistent with improving pneumonia and/or residual atelectasis/sca rring.
--- NOTE | 2020-08-22 10:22 | ECHO_ITS ---
Patient Info Name: James Black Age: 49 years : 1970 Gender: Male Ht: 72 in Wt: 230 lbs BSA: 2.33 m2 HR: 72 bpm BP: 145 / 80 mmHg Heart Rhythm: Sinus Rhythm Exam Date: 08/22/2020 10:43 AM Exam Location: [facility] Patient Status: Outpatient Admit Date: 08/22/2020 Staff Ordering Physician: Cecilia Harrison PAC Public Works Commissioner: Sury Rubi RDCS Attending Provider: Cecilia Harrison PAC Referring Physician: Christy KIDD; Exam Type: CA echo doppler color flow Study Info Indications R94.31 - Abnormal electrocardiogram ECG EKG Complete two-dimensional, color flow and Doppler transthoracic echocardiogram is performed. Summary 1. Complete two-dimensional, color flow and Doppler transthoracic echocardiogram is performed. 2. Left ventricular chamber dimension is normal. 3. Left ventricular systolic function is normal, estimated at 60-65%. 4. The left ventricular diastolic function is grade II diastolic dysfunction. 5. E/e' 9 is minimally elevated. 6. There is mild aortic valve regurgitation. 7. There is trace pulmonic regurgitation. Left Ventricle E/e' 9 is minimally elevated. Left ventricular chamber dimension is normal. Left ventricular systolic function is normal, estimated at 60-65%. The left ventricular diastolic function is grade II diastolic dysfunction. Right Ventricle Right ventricular chamber dimension is normal. Right ventricular systolic function is normal. Left Atria Left atrial chamber dimension is normal. Right Atria Right atrial chamber dimension is normal. Aortic Valve The aortic valve is trileaflet. There is no aortic valve stenosis. There is mild aortic valve regurgitation. Pulmonic Valve There is trace pulmonic regurgitation. Mitral Valve There is no mitral valve stenosis. There is no mitral valve regurgitation. Tricuspid Valve There is no tricuspid valve regurgitation. Pericardium/Pleural There is no pericardial effusion. Inferior Vena Cava Normal inferior vena cava with >50% collapse upon inspiration consistent with normal right atrial pressure, 5 mmHg. Aorta The aortic root size at the sinus of Valsalva is normal. Left Ventricular Outflow Tract Name Value Normal LVOT 2D LVOT Diameter 2.0 cm LVOT Doppler LVOT Peak Gradient 4 mmHg LVOT Mean Gradient 2 mmHg LVOT VTI 21 cm LVOT VTI/AV VTI Ratio 0.9 LVOT Stroke Volume 69 ml LVOT CO 11.8 l/min LVOT CI 5.1 l/min/m2 Pulmonic Valve Name Value Normal RVOT Doppler RVOT Peak Gradient 1 mmHg PV Doppler PV Peak Gradient
--- NOTE | 2020-08-22 11:00 | NEURO_ITS ---
Impression: # Complains of left elbow discomfort and numbness. # Left ulnar neuropathy across the elbow. # Normal needle/EMG exam. Nerve Conduction Studies Anti Sensory Summary Table Stim Site NR Peak (ms) P-T Amp (?V) Site1 Site2 Delta-P (ms) Dist (cm) Karri (m/s) Left Median Anti Sensory (2-3nd Digit) Wrist 2.9 78.0 Wrist 2-3nd Digit 2.9 14.0 48 Wrist 2.9 72.9 Wrist 2-3nd Digit 2.9 14.0 48 Right Median Anti Sensory (2-3nd Digit) Wrist 3.0 75.6 Wrist 2-3nd Digit 3.0 14.0 47 Wrist 3.0 62.4 Wrist 2-3nd Digit 3.0 14.0 47 Left Radial Anti Sensory (Base 1st Digit) Wrist 2.2 14.7 Wrist Base 1st Digit 2.2 0.0 Right Radial Anti Sensory (Base 1st Digit) Wrist 2.4 15.4 Wrist Base 1st Digit 2.4 0.0 Left Ulnar Anti Sensory (5th Digit) Wrist 2.8 18.2 Wrist 5th Digit 2.8 14.0 50 Right Ulnar Anti Sensory (5th Digit) Wrist 2.5 58.2 Wrist 5th Digit 2.5 14.0 56 Motor Summary Table Stim Site NR Onset (ms) O-P Amp (mV) Site1 Site2 Delta-0 (ms) Dist (cm) Karri (m/s) Left Median Motor (Abd Poll Brev) Wrist 3.1 3.2 Elbow Wrist 5.7 32.0 56 Elbow 8.8 2.9 Right Median Motor (Abd Poll Brev) Wrist 3.0 8.2 Elbow Wrist 5.4 31.0 57 Elbow 8.4 6.3 Left Ulnar Motor (Abd Dig Minimi) Wrist 2.7 7.0 A Elbow Wrist 6.3 32.0 51 A Elbow 9.0 6.0 B Elbow Wrist 4.6 27.0 59 B Elbow 7.3 5.7 Right Ulnar Motor (Abd Dig Minimi) Wrist 2.4 5.9 A Elbow Wrist 5.8 33.0 57 A Elbow 8.2 4.7 F Wave Studies NR F-Lat (ms) L-R F-Lat (ms) Left Median (Mrkrs) (Abd Poll Brev) 28.15 0.18 Right Median (Mrkrs) (Abd Poll Brev) 27.97 0.18 Left Ulnar (Mrkrs) (Abd Dig Min) 31.88 3.42 Right Ulnar (Mrkrs) (Abd Dig Min) 28.46 3.42 EMG Side Muscle Nerve Root Ins Act Fibs Amp Dur Recrt Comment Right 1stDorInt Ulnar C8-T1 Nml Nml Nml Nml Nml Right Ext Indicis Radial (Post Int) C7-8 Nml Nml Nml Nml Nml Right Ext Digitorum Radial (Post Int) C7-8 Nml Nml Nml Nml Nml Right BrachioRad Radial C5-6 Nml Nml Nml Nml Nml Right PronatorTeres Median C6-7 Nml Nml Nml Nml Nml Right Abd Poll Brev Median C8-T1 Nml Nml Nml Nml Nml Left 1stDorInt Ulnar C8-T1 Nml Nml Nml Nml Nml Left Ext Indicis Radial (Post Int) C7-8 Nml Nml Nml Nml Nml Left Ext Digitorum Radial (Post Int) C7-8 Nml Nml Nml Nml Nml Left BrachioRad Radial C5-6 Nml Nml Nml Nml Nml Left PronatorTeres Median C6-7 Nml Nml Nml Nml Nml Left Abd Poll Brev Median C8-T1 Nml Nml Nml Nml Nml MTDD
== END 2020-08-22 09:48 | disposition home or self-care (01) ==
PROVIDERS: PCP Family Medicine; Visit Provider Physician Assistant Medical
DX: R94.31 Abnormal electrocardiogram [ECG] [EKG] (principal); U07.1 COVID-19; J18.9 Pneumonia, unspecified organism; R20.2 Paresthesia of skin; G56.22 Lesion of ulnar nerve, left upper limb
CPT/HCPCS: 71046; 93306; 95886; 95911

== ENCOUNTER 2022-03-24 07:30 | Outpatient (CLI) | payer OTHER, SELFPAY ==
--- NOTE | ~2022-03-24 | XR_ITS ---
EXAMINATION: XR chest 2V 03/24/2022 07:50 INDICATION: Cough for 4 weeks PROCEDURE: 2 view chest COMPARISON: 08/22/2020 FINDINGS: The lungs are clear. The cardiomediastinal silhouette is within normal limits. There are no pleural effusions. There is no pneumothorax suspected. IMPRESSION: 1: NO ACUTE CARDIOPULMONARY DISEASE. Reviewed, dictated and finalized at location A.
== END 2022-03-24 07:31 | disposition home or self-care (01) ==
PROVIDERS: PCP Family Medicine; Visit Provider Nurse Practitioner Family
DX: R05.9 Cough, unspecified (principal)
CPT/HCPCS: 71046

== ENCOUNTER 2022-04-22 10:32 | Outpatient (CLI) | payer OTHER, SELFPAY ==
[2022-04-23 11:08] LABS: Kit Draw Collected
== END 2022-04-22 10:33 | disposition home or self-care (01) ==
LOC: ANHGOSHLAB 10:36
PROVIDERS: PCP Family Medicine; Visit Provider Physician Assistant Medical
DX: Z12.5 Encounter for screening for malignant neoplasm of prostate (principal); R79.89 Other specified abnormal findings of blood chemistry; E78.5 Hyperlipidemia, unspecified; J20.9 Acute bronchitis, unspecified
CPT/HCPCS: 36415

== ENCOUNTER 2022-05-25 08:15 | Outpatient (CLI) | payer OTHER, SELFPAY ==
[2022-05-30 03:35] LABS: Testosterone Free 192.9 pg/mL (35.0-155.0); Testosterone Total 797 ng/dL (250-1100)
== END 2022-05-25 08:16 | disposition home or self-care (01) ==
LOC: ANHGOSHLAB 08:17
PROVIDERS: PCP Family Medicine; Visit Provider Physician Assistant Medical
DX: R79.89 Other specified abnormal findings of blood chemistry (principal)
CPT/HCPCS: 36415; 84402; 84403

== ENCOUNTER 2022-08-03 06:45 | Day surgery (SDC) | payer OTHER, SELFPAY ==
[2022-05-20 14:03] VITALS: BMI 34.2
[2022-07-21 08:41] VITALS: BMI 34.1
[2022-08-03 07:25] VITALS: BP 145/98; PULSE 80; RESP 16; TEMP 36.6; O2SAT 98
[2022-08-03] MEDS: LACTATED RINGERS 1,000 ML 150 ML IV CONT (07:40)
--- NOTE | 2022-08-03 07:41 | WPDANESEPPF ---
Anes - Initial Pre Proc Eval Procedure: Operation Date: 08/03/22 08:30 Proposed Procedures p Screening Colonoscopy - [place] Jarrett MD Date/Time: 08/03/22 07:41 Surgeon: oRme Jarrett MD Pre Op Diagnosis: Neoplasm Screening Patient Data Age: 51 Gender: M Height: 1.8 m Weight: 116 kg Last Vital Signs Temp 36.6 C 08/03/22 07:25 Pulse 80 08/03/22 07:25 Resp 16 08/03/22 07:25 BP 145/98 H 08/03/22 07:25 Pulse Ox 98 08/03/22 07:25 O2 Del Method Room Air 08/03/22 07:25 Allergies Allergy/AdvReac Type Severity Reaction Status Date / Time No Known Allergies Allergy Verified 08/03/22 07:31 Home Medications Medication Instructions Recorded Confirmed Type cholecalciferol (vitamin D3) 25 25 mcg PO DAILY 14 days #14 tabs 07/08/20 08/03/22 Rx mcg (1,000 unit) tablet (Vitamin D3) diphenhydramine HCl 25 mg tablet 25 mg PO QHS PRN Sleep 04/27/22 08/03/22 History (Benadryl Allergy) syringe with needle 3 mL 22 x 1 #25 ea 04/29/22 08/03/22 Rx 1/2 ([employer] Luer Lock Syringe with needle) testosterone cypionate 200 mg/mL 200 mg IM .bi weekly #10 mL 05/31/22 08/03/22 Rx intramuscular oil Patient hx anesthesia problems: none Family hx anesthesia problems: none Results Review: All pre-operative results and documents have been reviewed as part of the pre-operative evaluation. 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 He has 3 children. His is a nurse. 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 He desires to be a full code. His lifelong nonsmoker. He does not use any alcohol or drugs. Smoking status: Never smoker Second hand tobacco smoke exposure: No Alcohol intake: current Drinks per week: 3 Substance use: never Substance use type: does not use Lack of Transportation: No Lack of Food: Never True Current Housing: I Have Housing Concerned About Future Housing: No Difficulty Paying Gas/Electric Bills: No Difficulty Paying for Meds: No Currently Unemployed: No Education: Master's Degree or Higher Difficulty w/ Childcare or Family Care: No Living arrangements: with family Gender identity (if verbalized by the patient): Male Spiritual care concerns: No Anes - Eval Final PreProcedure Day of Procedure 08/03/22 07:41 Patient weight: obese Heart: regular rate and rhythm Lungs: clear to auscultation and normal air movement Airway: Mallampati scale class II Neurological: alert and oriented Last oral intake: >/= 8 hours ASA classification: II Emergent: no Anesthetic plan: proceed Anesthesia type and monitoring: general GIVS Results Review: All pre-operative results and documents have been reviewed as part of the pre-operative evaluation. Informed Consent: The patient's anesthetic plan and its attendant risks and benefits were discussed with the patient/family/POA. Questions were solicited and answers provided to the satisfaction of the patient/family/POA.
--- NOTE | 2022-08-03 08:32 | PM.HPGS ---
History of Present Illness History of Present Illness Consent: Risks, benefits, and alternatives have been discussed and questions answered. Patient agrees to proceed with procedure. Chief complaint: Neoplasm Screening Narrative: James Black is a 51 year old male here for first screening colonoscopy Review of Systems Constitutional: Constitutional: Denies headache(s) and Denies weakness Eyes: Eyes: Denies blurry vision ENT: Reports Normal hearing present, Denies headache(s) and Denies neck pain Cardiovascular: Cardiovascular: Denies chest pain and Denies dyspnea Respiratory: Respiratory: Denies dyspnea Gastrointestinal: Gastrointestinal: Reports no additional gastrointestinal complaints Genitourinary: Genitourinary: Denies dysuria Musculoskeletal: Musculoskeletal: Denies neck pain Integumentary/Breasts: Skin/Breast: Denies dry skin Neurologic: Reports Normal hearing present, Denies headache(s) and Denies weakness Psychiatric: Psychiatric: Denies anxiety Endocrine: Endocrine: Denies change in body appearance Hematologic/Lymphatic: Hematologic/Lymphatic: Denies easy bleeding Allergic/Immunologic: Allergic/Immunologic: Denies urticaria [facility] Past Medical History Medical History (Updated 08/03/22 @ 07:42 by Keith Herndon MD) BMI 31.0-31.9,adult BMI 32.0-32.9,adult Hx of mitral valve prolapse SUNNY (obstructive sleep apnea) Surgical History Surgical History History of ankle surgery ORIF of left ankle Family History Family History Father Family history of coronary artery disease Social History Social History (Updated 05/08/22 @ 14:59 by IFTIKHAR Yu) Social History: The patient works for a [employer]. He has 3 children. His is a nurse. 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 He desires to be a full code. His lifelong nonsmoker. He does not use any alcohol or drugs. Smoking status: Never smoker Second hand tobacco smoke exposure: No Alcohol intake: current Drinks per week: 3 Substance use: never Substance use type: does not use Lack of Transportation: No Lack of Food: Never True Current Housing: I Have Housing Concerned About Future Housing: No Difficulty Paying Gas/Electric Bills: No Difficulty Paying for Meds: No Currently Unemployed: No Education: Master's Degree or Higher Difficulty w/ Childcare or Family Care: No Living arrangements: with family Gender identity (if verbalized by the patient): Male Spiritual care concerns: No Meds Home Medications and Allergies Home Medications Medication Instructions Recorded Confirmed Type cholecalciferol (vitamin D3) 25 25 mcg PO DAILY 14 days #14 tabs 07/08/20 08/03/22 Rx mcg (1,000 unit) tablet (Vitamin D3) diphenhydramine HCl 25 mg tablet 25 mg PO QHS PRN Sleep 04/27/22 08/03/22 History (Benadryl Allergy) syringe with needle 3 mL 22 x 1 #25 ea 04/29/22 08/03/22 Rx 1/2 ([employer] Luer Lock Syringe with needle) testosterone cypionate 200 mg/mL 200 mg IM .bi weekly #10 mL 05/31/22 08/03/22 Rx intramuscular oil Allergies Allergy/AdvReac Type Severity Reaction Status Date / Time No Known Allergies Allergy Verified 08/03/22 07:31 Vital Signs Vital Signs - 24 hr 08/03/22 07:25 Temperature 97.9 F Pulse Rate 80 Respiratory Rate 16 Blood Pressure 145/98 H Pulse Oximetry 98 Oxygen Delivery Room Air Exam Const: General: comfortable and no acute distress HENMT: Face/Nose/Sinus: Normal nares present Eyes: General: appearance normal, both eyes and all related structures Neck: Neck: no JVD Resp: Auscultation: clear to auscultation bilaterally Cardio: Rate: regular rate Rhythm: regular rhythm GI: Inspection: non-distended GI Palp: Yes Soft to palpation Skin: General skin exam: normal color Neuro: Gene
[2022-08-03 09:04] VITALS: BP 115/73; PULSE 77; RESP 16; O2SAT 98
[2022-08-03 09:14] VITALS: BP 97/74; PULSE 77; RESP 16; O2SAT 97
[2022-08-03 09:25] VITALS: BP 121/85; PULSE 68; RESP 16; O2SAT 98
--- NOTE | 2022-08-03 09:26 | SUR.PHASEII ---
0915; PT AWAKE AND ALERT. TALKATIVE. EATING AND DRINKING. DENIES PAIN.
--- NOTE | 2022-08-03 11:09 | WPDANESPN ---
Anes - Prog Note Post-Op Date/Time: 08/03/22 11:09 Cardiovascular status: normal Respiratory status: normal Airway patency: baseline Mental status: baseline Post-Op hydration status: normal Vital Signs: Last Vital Signs Temp 36.6 C 08/03/22 07:25 Pulse 68 08/03/22 09:25 Resp 16 08/03/22 09:25 BP 121/85 08/03/22 09:25 Pulse Ox 98 08/03/22 09:25 O2 Del Method Room Air 08/03/22 09:25 Pain Score (VAS): 0 I/O: Intake & Output 08/02/22 08/03/22 08/03/22 23:59 07:59 15:59 Intake Total 400 Balance 400 Post-procedural complaints: none Patient Feedback: Patient satisfied with anesthetic care.
== END 2022-08-03 09:43 | disposition home or self-care (01) ==
PROVIDERS: PCP Family Medicine; Visit Provider Internal Medicine Gastroenterology
PROC: 0DJD8ZZ Inspection of Lower Intestinal Tract, Via Natural or Artificial Opening Endoscopic (ICD-10-PCS; CPT 45378; principal; 2022-08-03 08:30)
DX: Z12.11 Encounter for screening for malignant neoplasm of colon (principal)
CPT/HCPCS: 45385

== ENCOUNTER 2022-08-03 07:37 | Outpatient (NON) | payer OTHER, SELFPAY | END 2022-08-03 07:38 | disposition home or self-care (01) | PROVIDERS: PCP Family Medicine; Visit Provider Internal Medicine Gastroenterology | DX: D12.4 Benign neoplasm of descending colon (principal) | CPT/HCPCS: 88305 ==